=== PATIENT | male | born 1995 | race Caucasian/White ===

== ENCOUNTER 2017-06-22 19:01 | Emergency (ER) | payer SELFPAY ==
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
[2017-06-23 01:55] VITALS: BP 118/71
== END 2017-06-23 01:54 | disposition home or self-care (01) ==
LOC: JP.ED 19:01
DX: R45.851 Suicidal ideations (principal); F19.20 Other psychoactive substance dependence, uncomplicated; F17.210 Nicotine dependence, cigarettes, uncomplicated
CPT/HCPCS: 36415; 80053; 80305; 81001; 85025; 99285; G0480; 99284

== ENCOUNTER 2018-01-16 15:19 | Emergency (ER) | payer SELFPAY ==
[2018-01-16 16:07] VITALS: BP 115/75
[2018-01-16] MEDS ORDERED: Lidocaine 1% 20 ML MDV INJECT ONE (18:03)
[2018-01-16] MEDS ORDERED: Bacitracin Oint 1 GM U/D Packet TOP ONE (18:04)
[2018-01-16] MEDS ORDERED: Diphtheria,Pertussis(Acell),Tetanus Vaccine 0.5 ML SDV IM ONE (18:45)
--- NOTE | 2018-01-16 18:46 | EDM.PDOC ---
ED HPI GENERAL MEDICAL PROBLEM - General Chief Complaint: Laceration Stated Complaint: LACERATION LEFT FOREARM Time Seen by Provider: 01/16/18 16:00 Source of Information: Reports: Patient History Limitations: Reports: No Limitations - History of Present Illness INITIAL COMMENTS - FREE TEXT/NARRATIVE: pt fell and hit a metal strip and has a 3 inch laceration on the dorsum of the left wrist. He had normalk range of motion of his fingers and he has normal motion. The laceration is deep to the subq. Onset: Today Duration: Hour(s): Location: Reports: Upper Extremity, Left Associated Symptoms: Reports: No Other Symptoms Right Arm Pain Score (Numeric/FACES): 4 - Related Data Allergies Allergy/AdvReac Type Severity Reaction Status Date / Time No Known Allergies Allergy Verified 01/16/18 16:04 Home Meds: Home Meds NK [No Known Home Meds] 11/11/16 [History] Past Medical History Gastrointestinal History: Reports: Other (See Below) Other Gastrointestinal History: untreated inguanal hernia Social & Family History - Tobacco Use Smoking Status *Q: Unknown Ever Smoked Years of Tobacco use: 2 Packs/Tins Daily: 1 Second Hand Smoke Exposure: Yes - Caffeine Use Caffeine Use: Reports: Soda - Alcohol Use Days Per Week of Alcohol Use: 1 Number of Drinks Per Day: 3 Total Drinks Per Week: 3 - Recreational Drug Use Recreational Drug Use: Yes Recreational Drug Type: Reports: Marijuana/Hashish Recreational Drug Use Frequency: Daily ED ROS GENERAL - Review of Systems Review Of Systems: See Below Constitutional: Reports: No Symptoms HEENT: Reports: No Symptoms Respiratory: Reports: No Symptoms Cardiovascular: Reports: No Symptoms Endocrine: Reports: No Symptoms GI/Abdominal: Reports: No Symptoms : Reports: No Symptoms Musculoskeletal: Reports: Other (pt fell and has a 3 inch laceration on the dorsum of the left wrist. ) Skin: Reports: No Symptoms Neurological: Reports: No Symptoms ED EXAM, SKIN/RASH Exam: See Below Text/Narrative:: pt has a 3 inch laceration on the dorsum of the left wrist. Exam Limited By: No Limitations General Appearance: Alert, Mild Distress Ears: Normal TMs Nose: Normal Inspection Extremities: Other (pt has a 3 inch laceration on the dorsum of the left wrist. He has normal motion and normal sensation. The area was cleansed well and infiltrated with lidocaine. The wound was closed in a layered fashion with 5-0 chromic and 5-0 prolene. It was dressed with a pressure dressing and bacatracin. ) Neurological: Alert, Oriented Psychiatric: Normal Affect Course - Vital Signs Last Recorded V/S: Last Vital Signs Temp 36.4 C 01/16/18 16:05 Pulse 106 H 01/16/18 16:05 Resp 16 01/16/18 16:05 BP 115/75 01/16/18 16:05 Pulse Ox 94 L 01/16/18 16:05 - Orders/Labs/Meds Orders: Active Orders 24 hr Category Date Time Status Vaccines to be Administered [RC] PER UNIT ROUTINE Care 01/16/18 18:45 Active Meds: Medications Discontinued Medications Generic Name Dose Route Start Last Admin Trade Name Catherine PRN Reason Stop Dose Admin Bacitracin 1 dose 01/16/18 18:04 Bacitracin Oint 1 Gm TOP 01/16/18 18:05 ONETIME ONE Diphtheria/Tetanus/Acell Pertussis 0.5 ml 01/16/18 18:45 Adacel IM 01/16/18 18:46 .ONCE ONE Lidocaine HCl 20 ml 01/16/18 18:03 01/16/18 18:43 Xylocaine 1% INJECT 01/16/18 18:04 20 ml ONETIME ONE Administration Departure - Departure Time of Disposition: 18:45 Disposition: Home, Self-Care 01 Condition: Fair Clinical Impression: Laceration - Discharge Information Referrals: PCP,None [Primary Care Provider] - Forms: ED Department Discharge Care Plan Goals: keep dry, no further ointments, keep covered, suture removal in 7-8 days. - My Orders Last 24 Hours: My Active Orders 01/16/18 18:45 Vaccines to be Administered [RC] PER UNIT ROUTINE - Assessment/Plan Last 24 Hours: My Active Orders 01/16/18 18:45 Vaccines to be Administered [RC] PER UNIT ROUTINE
== END 2018-01-16 19:02 | disposition home or self-care (01) ==
LOC: JP.ED 15:19
DX: S61.512A Laceration without foreign body of left wrist, initial encounter (principal); Z23 Encounter for immunization; W17.89XA Other fall from one level to another, initial encounter; W22.8XXA Striking against or struck by other objects, initial encounter
CPT/HCPCS: 12002; 12034; 90471; 90715; 99282-25; 99283-25

== ENCOUNTER 2018-02-26 18:05 | Emergency (ER) | payer SELFPAY ==
[2018-02-26 18:49] VITALS: BP 121/79
--- NOTE | 2018-02-26 20:01 | EDM.PDOC ---
ED HPI GENERAL MEDICAL PROBLEM - General Chief Complaint: Lower Extremity Injury/Pain Stated Complaint: R FOOT INJURY Time Seen by Provider: 02/26/18 19:17 Source of Information: Reports: Patient, Family, RN Notes Reviewed History Limitations: Reports: No Limitations - History of Present Illness INITIAL COMMENTS - FREE TEXT/NARRATIVE: 22-year-old gentleman presents emergency department today with complaint of right ankle pain, he was playing catch earlier today landed poorly on his right ankle rolled inwards heard a loud pop now is having difficulty ambulating hard for him to bear weight mild amount of swelling ankle Pain Score (Numeric/FACES): 2 - Related Data Allergies Allergy/AdvReac Type Severity Reaction Status Date / Time No Known Allergies Allergy Verified 02/26/18 18:49 Home Meds: Home Meds NK [No Known Home Meds] 11/11/16 [History] Past Medical History Gastrointestinal History: Reports: Other (See Below) Other Gastrointestinal History: untreated inguanal hernia Psychiatric History: Reports: Anxiety Social & Family History - Tobacco Use Smoking Status *Q: Current Every Day Smoker Years of Tobacco use: 8 Packs/Tins Daily: 1 - Caffeine Use Caffeine Use: Reports: Energy Drinks - Recreational Drug Use Recreational Drug Use: Yes Recreational Drug Type: Reports: Marijuana/Hashish Recreational Drug Use Frequency: Daily Review of Systems - Review of Systems Review Of Systems: See Below Constitutional: Reports: No Symptoms Musculoskeletal: Reports: Joint Pain (Ankle pain) Skin: Reports: Other (Edema) Neurological: Reports: No Symptoms ED EXAM, GENERAL - Physical Exam Exam: See Below Free Text/Narrative:: Examination of the right ankle I do appreciate some edema on the lateral aspect surrounding the lateral malleolus pedal pulse is +2 he has limited range of motion secondary to pain I do not elicit pain with an anterior drawer or tilt test sensation is intact full range of motion of digits Exam Limited By: No Limitations General Appearance: Alert, WD/WN, No Apparent Distress Course - Vital Signs Last Recorded V/S: Last Vital Signs Temp 97.9 F 02/26/18 18:47 Pulse 98 02/26/18 18:47 Resp 16 02/26/18 18:47 BP 121/79 02/26/18 18:47 Pulse Ox 98 02/26/18 18:47 - Orders/Labs/Meds Orders: Active Orders 24 hr Category Date Time Status Ankle Min 3V Rt [CR] Stat Exams 02/26/18 19:24 Taken Departure - Departure Time of Disposition: 20:00 Disposition: Home, Self-Care 01 Condition: Good Clinical Impression: Right ankle sprain Qualifiers: Encounter type: initial encounter Involved ligament of ankle: unspecified ligament Qualified Code(s): S93.401A - Sprain of unspecified ligament of right ankle, initial encounter - Discharge Information Referrals: PCP,None [Primary Care Provider] - Additional Instructions: Use ibuprofen as needed for pain control, continue with crutches as needed for pain control as well as Omkar wrap, Please followup with your primary care provider in 3-5 days if not better, please call return to the emergency department with worsening of symptoms. - My Orders Last 24 Hours: My Active Orders 02/26/18 19:24 Ankle Min 3V Rt [CR] Stat - Assessment/Plan Last 24 Hours: My Active Orders 02/26/18 19:24 Ankle Min 3V Rt [CR] Stat Plan: Assessment Acuity = acute Site and laterality = right ankle sprain Etiology = secondary to twisting injury during sports Manifestations = pain, edema Location of injury = Home Lab values = ankle x-ray for right I did review films myself I cannot appreciate any acute process, the official read from radiology is pending Plan Placed in an Omkar wrap and crutches to use ibuprofen as needed for pain control follow up with primary care in 3-5 days if no improvement This note was dictated using [employer] voice recognition software please call with any questions on syntax or grammar.
--- NOTE | 2018-02-27 09:13 | CR ---
Ankle Min 3V Rt INDICATION: pain FINDINGS: No acute fracture. Soft tissue swelling about the lateral malleolus. Exam otherwise negativ e. There is a discrepancy with the preliminary report that indicates a fracture. Findings discussed with Dr. Kaiser in person at 9:10 AM on 02/27/2018.
== END 2018-02-26 20:24 | disposition home or self-care (01) ==
LOC: JP.ED 18:05
DX: S93.401A Sprain of unspecified ligament of right ankle, initial encounter (principal); F17.210 Nicotine dependence, cigarettes, uncomplicated; X50.9XXA Other and unspecified overexertion or strenuous movements or postures, initial encounter
CPT/HCPCS: 73610-26-RT; 73610-RT; 99284

== ENCOUNTER 2019-08-12 08:14 | Day surgery (SDC) | payer MEDICAID, OTHER ==
[~2019-08-12 08:14] MED LIST: Acetaminophen 500 MG Tab PO ONE; Dexamethasone 4 MG/ML SDV ONE; Dextrose 5%-Lactated Ringers 1,000 ML IV SCH; Glycopyrrolate 0.2 MG/ML 5 ML MDV ONE; Neostigmine Methylsulfate 1 MG/ML 5 ML Syringe ONE; Ondansetron 4 MG/2 ML SDV ONE; Propofol 200 MG/20 ML SDV ONE; Rocuronium 50 MG/5 ML Vial ONE; Succinylcholine 200 MG/10 ML MDV ONE; fentaNYL 250 MCG/5 ML SDV ONE
[2019-08-12] MEDS ORDERED: Acetaminophen 500 MG Tab PO ONE (08:15)
[2019-08-12] MEDS ORDERED: Albuterol/Ipratropium 3.0-0.5 MG/3 ML Neb Soln NEB ONE (08:33)
[2019-08-12] MEDS ORDERED: Dextrose 5%-Lactated Ringers 1,000 ML IV SCH (09:15)
[2019-08-12] MEDS ORDERED: ceFAZolin 2 GM in Premix Bag 1 BAG IV ONE (09:45)
[2019-08-12] MEDS ORDERED: ceFAZolin 2 GM in Sodium Chloride 0.9% 50 ML IV ONE (09:45)
[2019-08-12] MEDS ORDERED: Bupivacaine 0.5%/EPINEPHrine 1:200,000 50 ML MDV ONE (10:26)
[2019-08-12] MEDS ORDERED: Bupivacaine 0.5% 50 ML MDV ONE (10:26)
[2019-08-12] MEDS ORDERED: Lidocaine 1% with EPINEPHrine 1:100,000 50 ML MDV ONE (10:26)
[2019-08-12] MEDS ORDERED: Propofol 200 MG/20 ML SDV ONE (10:29)
[2019-08-12] MEDS ORDERED: Rocuronium 50 MG/5 ML Vial ONE (10:29)
[2019-08-12] MEDS ORDERED: fentaNYL 250 MCG/5 ML SDV ONE (10:29)
[2019-08-12] MEDS ORDERED: Dexamethasone 4 MG/ML SDV ONE (10:29)
[2019-08-12] MEDS ORDERED: Glycopyrrolate 0.2 MG/ML 5 ML MDV ONE (10:29)
[2019-08-12] MEDS ORDERED: Neostigmine Methylsulfate 1 MG/ML 5 ML Syringe ONE (10:29)
[2019-08-12] MEDS ORDERED: Ondansetron 4 MG/2 ML SDV ONE (10:29)
[2019-08-12] MEDS ORDERED: Midazolam 1 MG/ML 2 ML SDV ONE (11:00)
[2019-08-12] MEDS ORDERED: Ketorolac 60 MG/2 ML SDV ONE (11:23)
[2019-08-12] MEDS ORDERED: diphenhydrAMINE 50 MG/ML SDV ONE (11:23)
[2019-08-12 13:37] VITALS: BP 124/80; PULSE 70
--- NOTE | 2019-08-18 12:17 | OR ---
DATE OF PROCEDURE: 08/12/2019 SURGEON: Tom Cade MD PREOPERATIVE DIAGNOSIS: Incarcerated left inguinal hernia. POSTOPERATIVE DIAGNOSES: 1. Incarcerated left inguinal hernia. 2. Left ilioinguinal nerve at risk for scar entrapment. OPERATIVE PROCEDURES: Left inguinal exploration with, 1. Repair of incarcerated left inguinal hernia with mesh plug technique (44505). 2. Excision of portion of left ilioinguinal nerve (42807). ANESTHESIA: General. HUMANE OFFICER: Kika Whitfield PA-C. INDICATIONS FOR PROCEDURE: This 24-year-old male presenting with a large left inguinal hernia. This contains large amount of sigmoid colon clinically. Plan was to proceed with an open repair of this with a mesh plug technique. Potential risks of the procedure including bleeding, infection, injury to underlying viscera, problems with hernia recurring or the mesh becoming infected were all reviewed, and the patient wishes to proceed; that we will often divide nerves in the operative field, such as the ilioinguinal nerve, to avoid postoperative neuropathic pain, also resulting in an area of anesthesia in the area around the incision were reviewed and the patient wishes to proceed. DETAILS OF PROCEDURE: The patient was taken to the operating room and placed in the supine position. After general endotracheal anesthesia was induced, the abdomen and groin areas were prepped and draped. A standard left inguinal incision was made and carried down through the skin and subcutaneous tissue, and through the external oblique aponeurosis. Aponeurotic flaps were then raised superiorly and inferiorly, and the cord structures were mobilized upward. The ilioinguinal nerve laid across the field and will obviously be covered by the flat portion of the mesh system. This was then excised down from mid portion of the field to the lateral-most aspect to avoid postoperative neuropathic pain. As cord structures were mobilized upward, the patient was noted to have some incarcerated bowel, looked most likely sigmoid colon. The sac was gradually dissected free after division of the cremasteric fibers and from the cord structures including the vas. This was dissected downward to a point of the internal ring where the bowel could be reduced and the hernia sac turned inward. An extra large mesh plug was then selected and placed into the area of the internal ring. The medial-most aspect of the plug was then fixed to the Shawn ligament with titanium tacking screws, into the underlying aspect of the conjoint tendon medially, superiorly, and laterally with horizontal mattress sutures of 0 Vicryl stitch. Over this then, the flat portion of the mesh-plug system was placed and sutured lateral to the cord structures with 4-0 Vicryl stitch and fixed to pubic tubercle medially with titanium tacking screw. The cord structures were then placed over the mesh, and the external oblique aponeurosis approximated with some 4-0 Vicryl stitch as was subcutaneous tissue, and the skin closed with 4-0 Vicryl subcuticular stitch. The area was anesthetized with 0.5% lidocaine mixed with lidocaine and dressing applied. The patient was taken to the recovery room in satisfactory condition. Physician bus assistant, Kika Whitfield, played an essential role in assisting in this case, helping to position the patient, retract structures as needed, as well as suturing and cutting sutures when indicated. Her presence improved patient safety and decreased the operative time. Tom Cade MD /[id number]
== END 2019-08-12 14:07 | disposition home or self-care (01) ==
LOC: JP.SDS 08:14
PROVIDERS: ATTEND Surgery
DX: K40.30 Unilateral inguinal hernia, with obstruction, without gangrene, not specified as recurrent (principal); F17.210 Nicotine dependence, cigarettes, uncomplicated
CPT/HCPCS: 49507; 64772; 88302; 94640; A9270; C1713; C1781; J0690; J1100; J1200; J1885; J2020; J2250; J2405; J2704; J2710; J3010; J3490; J7042; J7050; J0330; J7620-GY